=== PATIENT | female | born 1965 ===

== ENCOUNTER 2025-08-08 23:35 | Emergency (ER) | payer MEDICARE, MEDICAID, SELFPAY ==
[2025-08-08 23:35] VITALS: BP 107/71; PULSE 73; RESP 16; TEMP 36.2; O2SAT 96; O2SAT 97
--- NOTE | 2025-08-08 23:57 | ED.ABDPAIN ---
HPI - Abdominal Pain General Chief Complaint: Abdominal Pain Stated Complaint: pain all over Time Seen by Provider: 08/08/25 23:37 History of Present Illness HPI narrative: Patient is a 60-year-old female who presents to the ER with complaints of abdominal pain, chest pain, diarrhea, nausea, and cold sweats. She reports her abdominal pain started yesterday in her chest pain started this evening. Patient reports she is scheduled to have an endoscopy on Friday. She endorses a history of chronic pancreatitis, COPD, and her medical chart indicates she has a history of schizophrenia. Patient denies any urinary symptoms, increased lower extremity swelling, or blood in her stool. Related Data Home Medications ?Medication ?Instructions ?Recorded ?Confirmed ?Last Taken ?Type aluminum-mag hydroxide-simethicone 10 ml PO Q6H 03/21/25 03/21/25 Unknown History 200 mg-200 mg-20 mg/5 mL oral susp budesonide-formoterol HFA 80 2 puff inhalation Q12H 03/21/25 03/21/25 Unknown History mcg-4.5 mcg/actuation aerosol inhaler buspirone 10 mg tablet 15 mg PO TID 03/21/25 03/21/25 Unknown History buspirone 5 mg tablet 5 mg PO TID 03/21/25 03/21/25 Unknown History calcium carbonate (Tums) 200 mg PO HS 03/21/25 03/21/25 Unknown History diclofenac sodium 1 % topical gel 2 g topical QID PRN pain 03/21/25 03/21/25 Unknown History (Arthritis Pain (diclofenac)) divalproex 250 mg tablet,delayed 500 mg PO Q12H 03/21/25 05/12/25 Unknown History release gabapentin 400 mg capsule 400 mg PO TID 03/21/25 03/21/25 Unknown History levothyroxine 125 mcg tablet 125 mcg PO DAILY 03/21/25 03/21/25 Unknown History melatonin 3 mg capsule 3 mg PO HS 03/21/25 03/21/25 Unknown History nystatin 100,000 unit/gram topical 1 applic topical BID 03/21/25 03/21/25 Unknown History powder omeprazole 40 mg capsule,delayed 40 mg PO DAILY 03/21/25 03/21/25 Unknown History release risperidone 1 mg tablet 1 mg PO QAM 03/21/25 03/21/25 Unknown History risperidone 3 mg tablet 3 mg PO HS 03/21/25 03/21/25 Unknown History sennosides 8.6 mg tablet (Laxative 8.6 mg PO DAILY 03/21/25 03/21/25 Unknown History (sennosides)) sertraline 100 mg tablet 100 mg PO DAILY 03/21/25 03/21/25 Unknown History spironolactone 25 mg tablet 25 mg PO QAM 03/21/25 03/21/25 Unknown History (Aldactone) trazodone 150 mg tablet 150 mg PO HS 03/21/25 05/12/25 Unknown History umeclidinium 62.5 mcg/actuation 1 inh inhalation Q24H 03/21/25 03/21/25 Unknown History blister powder for inhalation (Incruse Ellipta) Acidophilus 1 cap PO DAILY 05/12/25 05/12/25 Unknown History trazodone 50 mg tablet 50 mg PO HS 05/12/25 05/12/25 Unknown History Allergies Allergy/AdvReac Type Severity Reaction Status Date / Time morphine Allergy Unknown Unknown Verified 05/12/25 15:05 Review of Systems Review of Systems: All systems reviewed & are unremarkable except as noted in HPI and below PMFSH Social History Social History Smoking packs per day: 1 Smoking cigarettes per day: 20.0 Years smoked: 25 Smoking pack-years: 25.00 Smoking status: Former smoker Tobacco type: cigarettes Alcohol intake: former Substance use: former Substance use type: marijuana and crack/cocaine Living arrangements: [facility] Additional living arrangements comments: [facility] [place] Spiritual care concerns: No Exam Narrative: GENERAL: Well appearing, well-nourished, non-toxic, in no acute distress. HEAD: Normocephalic, atraumatic. NECK: Supple. No adenopathy, no masses. RESPIRATORY: Airway patent, respirations nonlabored. Clear to auscultation bilaterally, no rales, rhonchi. Mild wheezing CARDIOVASCULAR: Regular rate and rhythm without murmurs, rubs, or gallops. Peripheral pulses 2+ and equal bilaterally. ABDOMINAL: Soft, generalized tenderness, nondistended, no hepatosplenomegaly. Normoactive BS. MUSCULOSKELETAL: Moves all extremities. Strength/ROM intact without gross deformities. SKIN: Warm, dry, normal color. No rashes. NEURO: A&O X3. Speech clear. Cranial nerves II-XII intact. No ataxic movements. PSYCHIATRIC: Appropriate mood and affect. Normal interaction. Course Vital Signs Vital signs: Vital Signs Temperature 36.2 C L 08/08/25 23:35 Pulse Rate 73 08/08/25 23:35 Respiratory Rate 16 08/08/25 23:35 Blood Pressure 107/71 08/08/25 23:35 Pulse Oximetry 96 08/08/25 23:35 Oxygen Delivery Room Air 08/08/25 23:35 Temperature 36.2 C L 08/08/25 23:35 Pulse Rate 73 08/08/25 23:35 Respiratory Rate 16 08/08/25 23:35 Blood Pressure 107/71 08/08/25 23:35 Pulse Oximetry 97 08/08/25 23:35 Oxygen Delivery Room Air 08/08/25 23:35 MDM - Abdominal Pain MDM Narrative Medical decision making narrative: Patient is a 60-year-old female who presents to the ER with complaints of abdominal pain, chest pain, diarrhea, nausea, and cold sweats. She reports her abdominal pain started yesterday in her chest pain started this evening. Patient reports she is scheduled to have an endoscopy on Friday. She endorses a history of chronic pancreatitis, COPD, and her medical chart indicates she has a history of schizophrenia. Patient denies any urinary symptoms, increased lower extremity swelling, or blood in her stool. Labs Ordered: CBC, CMP, lipase, PTT, INR, troponin, proBNP, D-dimer Medications Ordered: Ibuprofen IV (patient refused) Patient requesting pain medication. She reports she is allergic to morphine and Dilaudid usually works for her. It was explained to patient she would not receive Dilaudid until test results were back indicating it was necessary. Patient was instead offered ibuprofen IV. She declined this medication and reports ?I'll just [facility] care [facility] my pain back at the [facility]. Patient has chosen to refuse further care. Risks of an incomplete evaluation and treatment were discussed with the patient, including potential for or permanent disability. Patient seems to understand these risks, but still desires to refuse further care. Patient recommended to follow up with PCP in the next possible interval. Specifically, patient was told they can return to the ED at any time to resume care. Differential Diagnosis Differential diagnosis: Likely abdominal pain, constipation, diverticulitis, gastroenteritis and pancreatitis Lab Data Attestation: I reviewed the patient's lab results. 08/09/25 00:14 08/09/25 00:14 Labs: Lab Results 08/09/25 08/09/25 Range/Units 00:14 00:15 WBC 5.9 (4.5-10.0) K/mm3 RBC 3.17 L (4.2-5.4) M/mm3 Hgb 10.8 L (12.0-15.0) g/dL Hct 33.7 L (37.0-47.0) % MCV 106.3 H (80-100) fl MCH 34.1 H (26-34) pg MCHC 32.0 (32-36) g/dl RDW 15.4 H (11.5-14.5) % Plt Count 261 (150-375) k/mm3 MPV 8.8 (7.4-10.4) fl Immature Gran % (Auto) Not Reportable Neut % (Auto) Not Reportable Lymph % (Auto) Not Reportable [place] % (Auto) Not Reportable Eos % (Auto) Not Reportable Baso % (Auto) Not Reportable Lymph # (Auto) Not Reportable [place] # (Auto) Not Reportable Eos # (Auto) Not Reportable Baso # (Auto) Not Reportable Abs Immat Gran (auto) Not Reportable Absolute Neuts (auto) Not Reportable Absolute Nucleated RBC Not Reportable Total Counted 100 Neutrophils % (Manual) 46 (46-73) % Band Neutrophils % 3 (0-6) % Lymphocytes % (Manual) 31.0 (18-44) % Monocytes % (Manual) 7 (3-9) % Eosinophils % (Manual) 13 H (0-4) % Nucleated RBC % Not Reportable Abs Neuts (Manual) 2.89 (1.3-6.7) K/mm3 Abs Lymphs (Manual) 1.82 (1.1-4.5) K/mm3 Abs Monocytes (Manual) 0.41 (0.1-0.90) K/mm3 Absolute Eos (Manual) 0.76 H (0.02-0.50) K/mm3 Atypical Lymphocytes Present Smudge Cells Present Platelet Estimate Adequate (Adequate) Clumped Platelets Present Anisocytosis 1+ Macrocytosis 1+ (NORMAL) Schistocytes None seen PT 15.3 H (11.1-14.7) Seconds INR 1.2 APTT 39.8 H (22.3-36.8) Seconds D-Dimer 0.92 H (<0.48) ug/mL Sodium 130 L (137-145) mmol/L Potassium 3.9 (3.4-5.0) mmol/L Chloride 98 (98-107) mmol/L Carbon Dioxide 32 H (22-30) mmol/L Anion Gap 0 L (4-12) mmol/L BUN 4 L (7-17) mg/dL Creatinine 0.36 L (0.7-1.0) mg/dL Estim Creat Clear Calc 155 ml/min Estimated GFR > 60 (59 - ) Glucose 88 (65-110) mg/dL Calcium 8.5 (8.4-10.2) mg/dL Total Bilirubin 0.5 (0.2-1.3) mg/dL AST 70 H (14-36) U/L ALT 15 (6-35) U/L Alkaline Phosphatase 232 H (38-126) U/L Troponin I < 0.012 (0.000-0.034) ng/mL NT-Pro-B Natriuret Pep 274 H (19.9-100) pg/mL Total Protein 5.7 L (6.3-8.2) g/dL Albumin 2.6 L (3.5-5.1) g/dL Lipase 93 (23-300) U/L Discharge Plan Discharge Clinical Impression: Abdominal pain, Chest pain Patient Disposition: Left Against Medical Advice Condition: Guarded Prognosis Instructions: Antibiotic Form Patient Language: Serbian Prescriptions: No Action buspirone 10 mg tablet 15 mg PO TID divalproex 250 mg tablet,delayed release (DR/EC) 500 mg PO Q12H gabapentin 400 mg capsule 400 mg PO TID levothyroxine 125 mcg tablet 125 mcg PO DAILY omeprazole 40 mg capsule,delayed release(DR/EC) 40 mg PO DAILY risperidone 1 mg tablet 1 mg PO QAM risperidone 3 mg tablet 3 mg PO HS sennosides [Laxative (sennosides)] 8.6 mg tablet 8.6 mg PO DAILY sertraline 100 mg tablet 100 mg PO DAILY spironolactone [Aldactone] 25 mg tablet 25 mg PO QAM budesonide-formoterol 80-4.5 mcg/actuation HFA aerosol inhaler 2 puff INHALATION Q12H trazodone 150 mg tablet 150 mg PO HS Incruse Ellipta 62.5 mcg/actuation blister with device 1 inh INHALATION Q24H buspirone 5 mg tablet 5 mg PO TID Patient Comments: In addition to Buspar 10mg TID melatonin 3 mg capsule 3 mg PO HS alum-mag hydroxide-simeth 200-200-20 mg/5 mL suspension 10 ml PO Q6H nystatin 100,000 unit/gram powder 1 applic topical BID calcium carbonate [Tums] 200 mg calcium (500 mg) tablet,chewable 200 mg PO HS diclofenac sodium [Arthritis Pain (diclofenac)] 1 % gel 2 g topical QID PRN (Reason: pain) Rx Instructions: apply to single elbow, wrist or hand; for hand includes palm/fingers/back of hand Acidophilus 1 cap PO DAILY trazodone 50 mg tablet 50 mg PO HS Follow-up/Referrals: UNKNOWN,DOCTOR [Primary Care Provider]
[2025-08-09 00:24] LABS: Hematocrit 33.7 % (37.0-47.0); Hemoglobin 10.8 g/dL (12.0-15.0); Mean Corpuscular HGB Conc 32.0 g/dl (32-36); Mean Corpuscular Hemoglobin 34.1 pg (26-34); Mean Corpuscular Volume 106.3 fl (80-100); Platelet Count Result 261 k/mm3 (150-375); Red Blood Count 3.17 M/mm3 (4.2-5.4); White Blood Count 5.9 K/mm3 (4.5-10.0)
[2025-08-09 00:32] LABS: Alanine Aminotransferase 15 U/L (6-35); Albumin Level 2.6 g/dL (3.5-5.1); Alkaline Phosphatase 232 U/L (38-126); Anion Gap 0 mmol/L (4-12); Aspartate Amino Transferase 70 U/L (14-36); Bilirubin,Total 0.5 mg/dL (0.2-1.3); Blood Urea Nitrogen 4 mg/dL (7-17); Calcium 8.5 mg/dL (8.4-10.2); Carbon Dioxide 32 mmol/L (22-30); Chloride 98 mmol/L (98-107); Estimated CRCL calculation 155 ml/min; Estimated Glomerular Filt Rate > 60; Glucose 88 mg/dL (65-110); Lipase 93 U/L (23-300); Potassium 3.9 mmol/L (3.4-5.0); Sodium 130 mmol/L (137-145); Total Protein 5.7 g/dL (6.3-8.2)
[2025-08-09 00:35] LABS: INR 1.2; Prothrombin Time 15.3 Seconds (11.1-14.7)
--- NOTE | 2025-08-09 00:35 | PC.NURSE ---
This RN was about to administer Coradol IV and pt stated medication would not work. Pt stated , I just want to go home, please call my ride. This RN recommended pt take medication to see if she could get pain relief and pt refused. MD notified and AMA form was signed. VSS. Pt AOx4 . GS 15.
[2025-08-09 00:36] LABS: Partial Thromboplastin Time 39.8 Seconds (22.3-36.8)
[2025-08-09 00:44] LABS: NT Pro B Type Natriuretic Pept 274 pg/mL (19.9-100); Troponin I < 0.012 ng/mL (0.000-0.034)
[2025-08-09 00:54] LABS: Anisocytosis 1+; Band Neutrophils Percent 3 % (0-6); Eosinophils Absolute Manual 0.76 K/mm3 (0.02-0.50); Eosinophils Percent Manual 13 % (0-4); Lymphocytes Absolute Manual 1.82 K/mm3 (1.1-4.5); Lymphocytes Percent Manual 31.0 % (18-44); Monocytes Absolute Manual 0.41 K/mm3 (0.1-0.90); Monocytes Percent Manual 7 % (3-9); Neutrophils Absolute Manual 2.89 K/mm3 (1.3-6.7); Neutrophils Percent Manual 46 % (46-73); Total Cells Counted 100
[2025-08-09 00:55] LABS: Macrocytosis 1+ (NORMAL)
[2025-08-09 00:56] LABS: Schistocytes None Seen; Smudge Cells PRESENT
== END 2025-08-09 01:13 | disposition left against medical advice (07) ==
PROVIDERS: Emergency Provider Registered Nurse
DX: R07.9 Chest pain, unspecified (principal); R10.9 Unspecified abdominal pain; K86.1 Other chronic pancreatitis; J44.9 Chronic obstructive pulmonary disease, unspecified; F20.9 Schizophrenia, unspecified; Z87.891 Personal history of nicotine dependence; Z79.899 Other long term (current) drug therapy
CPT/HCPCS: 36415; 80053; 83690; 83880; 84484; 85025; 85380; 85610; 85730; 99284